=== PATIENT | male | born 1960 | race Hispanic/Latino ===

== ENCOUNTER 2020-03-12 13:00 | Inpatient (IN) | payer OTHER ==
[~2020-03-12] VITALS: Ht 177.8 cm; Wt 115.2 kg
[2020-03-18] MEDS ORDERED: ASPI-1443 PO (14:03)
[2020-03-18] MEDS ORDERED: FISH1CAP63 PO (14:03)
[2020-03-18] MEDS ORDERED: GLUC-268 PO (14:03)
[2020-03-18] MEDS ORDERED: MULT-1192 PO (14:03)
[2020-03-18] MEDS ORDERED: ATOR10 PO (14:03)
[2020-03-19] VITALS (23 sets, daily range): BP systolic 115–165; BP diastolic 52–88
[2020-03-19] MEDS: CEFAZOLIN SODIUM 1 GM VIAL IVP SCH ×3 (05:00→16:39)
[2020-03-19] MEDS ORDERED: LACTATED RINGERS 1000ML 1,000 ML IV ONE (07:00)
[2020-03-19] MEDS ORDERED: CEFAZOLIN SODIUM 1 GM VIAL ONE (07:26)
[2020-03-19] MEDS ORDERED: TRANEXAMIC ACID 1000MG/10ML ONE ×2 (07:27→12:41)
[2020-03-19] MEDS ORDERED: CELECOXIB 200 MG CAP ONE (08:24)
[2020-03-19] MEDS ORDERED: ACETAMINOPHEN EXTRA STRENGTH 500 MG TABLET ONE (08:24)
[2020-03-19] MEDS ORDERED: METOCLOPRAMIDE 10 MG/2 ML VIAL ONE (08:24)
[2020-03-19] MEDS ORDERED: KETOROLAC TROMETHAMINE 30MG/ML ONE (08:25)
[2020-03-19] MEDS ORDERED: MIDAZOLAM HCL 1 MG/ML 2ML VIAL ONE ×2 (09:41→09:50)
[2020-03-19] MEDS ORDERED: LIDOCAINE PF 2% 5ML ABBOJECT ONE (09:49)
[2020-03-19] MEDS ORDERED: ONDANSETRON HCL 4 MG/2 ML VIAL ONE (09:50)
[2020-03-19] MEDS ORDERED: FENTANYL CITRATE PF 50 MCG/1 ML 2ML VIAL ONE ×2 (09:50→10:36)
[2020-03-19] MEDS ORDERED: PROPOFOL 10 MG/ML 20ML VIAL IV ONE (09:50)
[2020-03-19] MEDS ORDERED: ROCURONIUM 10MG/1ML SYR 10 MG/ML ML ONE (09:54)
[2020-03-19] MEDS ORDERED: GLYCOPYRROLATE 1 MG/5 ML SYRINGE ONE (12:01)
[2020-03-19] MEDS ORDERED: NEOSTIGMINE 5MG/5ML SYR IV ONE (12:01)
[2020-03-19] MEDS ORDERED: ROPIVACAINE 0.5% 5MG/ML 30ML IJ ONE (12:08)
[2020-03-19] MEDS ORDERED: OXYCODONE HCL 5 MG TAB PO PRN (12:15)
[2020-03-19] MEDS: SODIUM CHLORIDE 0.9% 1000ML 1,000 ML IV SCH ×2 (12:15→22:15)
[2020-03-19] MEDS ORDERED: POTASSIUM CHLORIDE 20 MEQ ERTAB PO PRN (12:15)
[2020-03-19] MEDS ORDERED: CALCIUM CARBONATE 500 MG TABLET PO PRN (12:15)
[2020-03-19] MEDS ORDERED: TEMAZEPAM 15 MG CAPSULE PO PRN (12:15)
[2020-03-19] MEDS ORDERED: POTASSIUM CHLORIDE 20MEQ/100ML 100 ML IV PRN (12:15)
[2020-03-19] MEDS ORDERED: FERROUS FUMARATE 324 MG TABLET PO PRN (12:15)
[2020-03-19] MEDS ORDERED: POTASSIUM CHLORIDE 10% ELIXIR 20 MEQ/15 ML UDCUP PO PRN (12:15)
[2020-03-19] MEDS ORDERED: TRAMADOL HCL 50 MG TABLET PO PRN (12:15)
[2020-03-19] MEDS ORDERED: LIDOCAINE HCL-MPF 1% 2ML VIAL IV PRN (12:15)
[2020-03-19] MEDS ORDERED: DiphenhydrAMINE HCL 50 MG/ML VIAL IVP PRN (12:15)
[2020-03-19] MEDS: ACETAMINOPHEN EXTRA STRENGTH 500 MG TABLET PO SCH ×2 (12:15→21:27)
[2020-03-19] MEDS ORDERED: MEPERIDINE-PF 25 MG/ML SYG ONE ×2 (12:41→13:00)
[2020-03-19] MEDS: ONDANSETRON HCL 4 MG/2 ML VIAL IVP PRN ×2 (13:06→13:41)
--- NOTE | 2020-03-19 13:52 | NUR ---
DC PLAN PATIENT LIVES WITH SPOUSE AND DAUGHTER. PATIENT INDEPENDENT ABLE TO PERFORM ADL'S. PATIENT HAS WALKER AND 3 IN 1 FROM LAST KNEE SURGERY. PATIENT FEELS SAFE TO RETURN HOME. GAVE VERBAL DEBORAH FOR ANY IN [facility]. CONFIRMED WITH ARNAV HAIDER. MELIZA WILL CONTINUE TO FOLLOW. Addendum: 03/19/20 at 1355 by DONALD BECKFORD RN CM Amended: Links added.
[2020-03-19] MEDS: KETOROLAC TROMETHAMINE 15MG/ML IV PRN ×2 (14:53→21:25)
[2020-03-19] MEDS: OXYCODONE HCL 5 MG TAB PO PRN (18:26)
[2020-03-19] MEDS: PREGABALIN 25 MG CAP PO SCH (21:27)
[2020-03-19] MEDS: CELECOXIB 200 MG CAP PO SCH (21:27)
[2020-03-19] MEDS: FAMOTIDINE 20MG TAB 20 MG TAB PO SCH (21:27)
[2020-03-19] MEDS: ASPIRIN 81MG TAB.CHEW PO SCH (21:27)
[2020-03-20] MEDS: CEFAZOLIN SODIUM 1 GM VIAL IVP SCH ×2 (01:12→05:00)
[2020-03-20] MEDS: OXYCODONE HCL 5 MG TAB PO PRN ×3 (01:18→15:25)
[2020-03-20] MEDS: ONDANSETRON HCL 4 MG/2 ML VIAL IVP PRN ×2 (01:18→08:52)
[2020-03-20 03:44] VITALS: BP 121/77
[2020-03-20 03:50] LABS: HEMATOCRIT 36.7 % (42-54); MEAN CORPUSCULAR HEMOGLOBIN 29.9 pg (27.0-33.0); MEAN CORPUSCULAR HGB CONC 34.1 g/dL (32.0-36.0); MEAN CORPUSCULAR VOLUME 87.8 fL (79-99); RED BLOOD CELL COUNT(AUTO) 4.18 MIL/uL (4.50-6.20); RED CELL DISTRIBUTION WIDTH 12.6 % (11.0-15.5); WHITE BLOOD COUNT (AUTO) 12.5 K/uL (4.8-10.8)
[2020-03-20 03:54] LABS: CREATININE 1.1 mg/dL (0.5-1.5); POTASSIUM 3.8 mmol/L (3.5-5.1)
[2020-03-20] MEDS: ACETAMINOPHEN EXTRA STRENGTH 500 MG TABLET PO SCH ×3 (04:33→20:47)
[2020-03-20 08:05] VITALS: BP 137/84
[2020-03-20] MEDS: SODIUM CHLORIDE 0.9% 1000ML 1,000 ML IV SCH (08:15)
[2020-03-20] MEDS ORDERED: GLUCOS SUL PO SCH (09:00)
[2020-03-20] MEDS: MULTIVITAMIN TABLET PO SCH (09:00)
[2020-03-20] MEDS ORDERED: NON-FORMULARY MEDICATION 1 EACH (Fish Oil/Dha/Epa (Fish Oil 1,200 mg Fish Oil) 1 EACH) PO SCH (09:00)
[2020-03-20] MEDS: GLUCOSAMINE-CHONDROITIN PO SCH (09:00)
[2020-03-20] MEDS ORDERED: [UNRECOGNIZED DRUG - OTHER] PO SCH (09:00)
[2020-03-20] MEDS: FISH OIL 1000 MG/CAP PO SCH (09:00)
[2020-03-20] MEDS ORDERED: NON-FORMULARY MEDICATION 1 EACH (Multivitamin (Multi-Vitamin Daily) 1 EACH) PO SCH (09:00)
[2020-03-20] MEDS: ATORVASTATIN CALCIUM 10 MG TABLET PO SCH (09:59)
[2020-03-20] MEDS: PREGABALIN 25 MG CAP PO SCH ×2 (10:00→20:44)
[2020-03-20] MEDS: ASPIRIN 81MG TAB.CHEW PO SCH ×2 (10:01→20:44)
[2020-03-20] MEDS: CELECOXIB 200 MG CAP PO SCH ×2 (10:01→20:43)
[2020-03-20] MEDS: POLYETHYLENE GLYCOL 3350 17 GM POWD.PACK PO SCH (10:01)
[2020-03-20] MEDS: TAMSULOSIN HCL 0.4 MG CAP.ER.24H PO SCH (10:01)
[2020-03-20] MEDS: FAMOTIDINE 20MG TAB 20 MG TAB PO SCH ×2 (10:01→20:45)
[2020-03-20 11:18] VITALS: BP 139/88
[2020-03-20 16:16] VITALS: BP 132/76
--- NOTE | 2020-03-20 16:43 | NUR ---
AIMEE PLAN VISITED WITH PATIENT. LET HIM KNOW THAT HIS INSURANCE WILL ONLY COVER 85% HE WOULD OWE 15% $21 PER VISIT FOR NURSING $22.50 PER VISIT FOR PHYSICAL THERAPY. PATIENT SAID OKAY WITH [facility]. LET DOLORES AT [facility]. SAID WILL ACCEPT PATIENT. LET NURSE KNOW ORANGE PAPER IN CHART. Addendum: 03/20/20 at 1645 by DONALD BECKFORD RN CM Amended: Links added.
[2020-03-20] MEDS: KETOROLAC TROMETHAMINE 15MG/ML IV PRN (17:56)
[2020-03-20 19:54] VITALS: BP 128/71
[2020-03-20 23:25] VITALS: BP 124/78
[2020-03-21] MEDS: ACETAMINOPHEN EXTRA STRENGTH 500 MG TABLET PO SCH (03:24)
[2020-03-21 04:00] VITALS: BP 121/70
[2020-03-21 08:00] VITALS: BP 117/72
[2020-03-21] MEDS: OXYCODONE HCL 5 MG TAB PO PRN (08:16)
[2020-03-21] MEDS: GLUCOSAMINE-CHONDROITIN PO SCH (09:00)
[2020-03-21] MEDS: MULTIVITAMIN TABLET PO SCH (09:00)
[2020-03-21] MEDS: FISH OIL 1000 MG/CAP PO SCH (09:00)
[2020-03-21] MEDS: POLYETHYLENE GLYCOL 3350 17 GM POWD.PACK PO SCH (09:48)
[2020-03-21] MEDS: FAMOTIDINE 20MG TAB 20 MG TAB PO SCH (09:48)
[2020-03-21] MEDS: ASPIRIN 81MG TAB.CHEW PO SCH (09:49)
[2020-03-21] MEDS: PREGABALIN 25 MG CAP PO SCH (09:49)
[2020-03-21] MEDS: ATORVASTATIN CALCIUM 10 MG TABLET PO SCH (09:49)
[2020-03-21] MEDS: TAMSULOSIN HCL 0.4 MG CAP.ER.24H PO SCH (09:49)
[2020-03-21] MEDS: CELECOXIB 200 MG CAP PO SCH (09:49)
[2020-03-21] MEDS: ONDANSETRON HCL 4 MG/2 ML VIAL IVP PRN (10:48)
[2020-03-21 11:58] VITALS: BP 131/77
[2020-03-21] MEDS ORDERED: ASPI-1443 PO (14:35)
[2020-03-21] MEDS ORDERED: HYDR-4457 PO (14:35)
[2020-03-21 16:00] VITALS: BP 130/72
--- NOTE | 2020-03-21 18:30 | NUR ---
PATIENT GIVEN DISCHARGE INSTRUCTIONS AND EDUCATION ON FOLLOW UP APPOINTMENT, NEW RX (ASPIRIN, AND NORCO), WBAT, GLENNA DRESSING CARE AND REMOVAL DATE 03/26/2020, AND S/SX TO REPORT TO MD. PATIENT VERBALIZED UNDERSTANDING OF ALL EDUCATION GIVEN VIA TEACH BACK. GLENNA DRESSING CHANGED USING STERILE TECHNIQUE. NO ABNORMAL S/SX NOTED. NEW GLENNA DRESSING APPLIED, NEGATIVE PRESSURE ACTIVE, SEAL INTACT, RX VERIFIED, PHARMACY VERIFIED WITH PATIENT. IV DISCONTINUED, CATHETER INTACT. REPORT CALLED TO DOLORES MANDUJANO) AT [facility]. INSTRUCTION GIVEN ON FOLLOW UP APPOINTMENT, NEW RX (ELIQUIS, NORCO, HEMOCYTE), WBAT, GLENNA DRESSING, AND REMOVAL DATE 03/26/20, AND S/SX TO REPORT TO MD. ALL QUESTIONS ANSWERED ACCORDINGLY.
[2020-03-22] MEDS ORDERED: BISACODYL 10 MG SUPP.RECT RC PRN (12:15)
== END 2020-03-21 18:30 | disposition home health service (06) | DRG 470 ==
LOC: EDSTATUS 13:00 → DAHIP 03-19 06:33 → 3AH 03-19 13:07
PROVIDERS: ADMIT Orthopaedic Surgery; ATTEND Orthopaedic Surgery
PROC: 0SRD0J9 Replacement of Left Knee Joint with Synthetic Substitute, Cemented, Open Approach (ICD-10-PCS; principal; 2020-03-19 09:40)
DX: M17.12 Unilateral primary osteoarthritis, left knee (principal); E78.00 Pure hypercholesterolemia, unspecified; G89.29 Other chronic pain; E66.9 Obesity, unspecified; Z20.828 Contact with and (suspected) exposure to other viral communicable diseases; Z96.651 Presence of right artificial knee joint; Z82.49 Family history of ischemic heart disease and other diseases of the circulatory system; Z87.442 Personal history of urinary calculi; Z68.36 Body mass index [BMI] 36.0-36.9, adult
CPT/HCPCS: 36415; 80048; 85027; 87641; 97039; A4606; G0378; J0690; J1885; J2001; J2175; J2250; J2405; J2704; J2710; J2765; J2795; J3010; J3490; J7120; U0003